=== PATIENT | female | born 1950 | race Caucasian/White ===

== ENCOUNTER 2020-10-25 13:19 | Emergency (ER) | payer OTHER ==
[~2020-10-25] VITALS: Ht 157.5 cm; Wt 83.0 kg
[2020-10-25 13:27] VITALS: BP 147/88
--- NOTE | 2020-10-25 13:40 | NUR ---
PATIENT AMBULATED TO BED 01 WITH STEADY GAIT
--- NOTE | 2020-10-25 13:55 | NUR ---
Dr. Long is evaluating patient at bedside.
--- NOTE | 2020-10-25 13:58 | NUR ---
69 y/o F brought in from Urgent Care referral to r/o DVT. Patient A&Ox4, ambulatory, reports left leg edema x 3 months that worsen over the past two weeks. Patient presents with edema to left foot; lateral aspect of foot. Patient reports it worsens with walking, 5/10 severity. Patient also reports numbness to anterior left foot. Patient denies any medications prior to arrival. Patient denies any N/V/D, chest pain, SOB, dizziness, HERNANDEZ, back/abdominal pain. Patient reports pain to bilateral fingers, however, states due to arthritis. Pt placed into gown and secured entrance monitor. VSS; lung sounds CTA, respirations even/unlabored. Bed locked in lowest position, side rails x 1, call light in reach. PMH: HTN, thyroid ca, venous insufficiency, varicose veins surgery (15 years ago) Meds: levothyroxine, omeprazole, vit d, colace, vasculera NKA
--- NOTE | 2020-10-25 14:15 | NUR ---
Lab at bedside.
--- NOTE | 2020-10-25 14:20 | NUR ---
US tech at bedside.
--- NOTE | 2020-10-25 14:30 | NUR ---
Lab states unsuccessful attempt for blood draw; will try after US completed.
--- NOTE | 2020-10-25 15:10 | NUR ---
Lab at bedside.
[2020-10-25 15:22] LABS: BASOPHILS # (AUTO) 0.1 K/uL (0.00-0.22); BASOPHILS % (AUTO) 0.9 % (0.0-2.0); EOSINOPHILS # (AUTO) 0.1 K/uL (0-0.4); EOSINOPHILS % (AUTO) 1.3 % (0.0-4.0); HEMATOCRIT 43.8 % (36-48); HEMOGLOBIN 14.6 g/dL (12.0-16.0); LYMPHOCYTES # (AUTO) 1.8 K/uL (2.5-16.5); LYMPHOCYTES % (AUTO) 21.2 % (20.5-51.1); MEAN CORPUSCULAR HEMOGLOBIN 30 pg (27-31); MEAN CORPUSCULAR HGB CONC 33 g/dL (33-37); MEAN CORPUSCULAR VOLUME 88.6 fL (80-94); MONOCYTES # (AUTO) 0.6 K/uL (0.8-1.0); MONOCYTES % (AUTO) 7.4 % (1.7-9.3); NEUTROPHILS % (AUTO) 69.2 % (42.2-75.2); PLATELET COUNT (AUTO) 363 K/uL (140-450); RED BLOOD CELL COUNT(AUTO) 4.95 MIL/uL (4.20-5.40); RED CELL DISTRIBUTION WIDTH 14.5 % (11.6-13.7); WHITE BLOOD COUNT (AUTO) 8.7 K/uL (4.8-10.8)
[2020-10-25 15:35] LABS: PROTHROMBIN TIME 10.7 secs (10.8-13.4)
[2020-10-25 15:51] LABS: ALBUMIN 3.6 g/dL (3.4-5.0); CARBON DIOXIDE 28.9 mmol/L (21-32); CREATININE 0.8 mg/dL (0.6-1.3); POTASSIUM 3.9 mmol/L (3.5-5.1); TOTAL BILIRUBIN 0.5 mg/dL (0.0-1.0)
--- NOTE | 2020-10-25 15:53 | NUR ---
PATIENT AMBULATED TO RESTROOM WITH STEADY GAIT.
[2020-10-25 16:00] VITALS: BP 147/62
--- NOTE | 2020-10-25 16:00 | NUR ---
Patient discharged with v/s stable. Written and verbal after care instructions given and explained. Patient verbalized understanding. Ambulatory with steady gait. All questions addressed prior to discharge. Advised to follow up with PMD. PT WAS GIVEN COPY OF US TO FOLLOW UP WITH PCP.
== END 2020-10-25 15:56 | disposition home or self-care (01) ==
LOC: MED 13:19
DX: M79.89 Other specified soft tissue disorders (principal); I10 Essential (primary) hypertension; Z98.890 Other specified postprocedural states
CPT/HCPCS: 36415; 80053; 85025; 85610; 93971; 99284

== ENCOUNTER 2020-12-31 19:08 | Emergency (ER) | payer OTHER ==
[~2020-12-31] VITALS: Ht 154.9 cm; Wt 82.1 kg
[2020-12-31 19:37] VITALS: BP 147/65
[2020-12-31 20:13] LABS: BASOPHILS # (AUTO) 0.2 K/uL (0.00-0.22); BASOPHILS % (AUTO) 2.3 % (0.0-2.0); EOSINOPHILS # (AUTO) 0.3 K/uL (0-0.4); EOSINOPHILS % (AUTO) 3.8 % (0.0-4.0); HEMATOCRIT 45.1 % (36-48); HEMOGLOBIN 14.6 g/dL (12.0-16.0); LYMPHOCYTES # (AUTO) 1.3 K/uL (2.5-16.5); LYMPHOCYTES % (AUTO) 17.6 % (20.5-51.1); MEAN CORPUSCULAR HEMOGLOBIN 28 pg (27-31); MEAN CORPUSCULAR HGB CONC 33 g/dL (33-37); MEAN CORPUSCULAR VOLUME 85.2 fL (80-94); MONOCYTES # (AUTO) 0.5 K/uL (0.8-1.0); MONOCYTES % (AUTO) 6.1 % (1.7-9.3); NEUTROPHILS # (AUTO) 5.3 K/uL (1.8-7.7); NEUTROPHILS % (AUTO) 70.2 % (42.2-75.2); PLATELET COUNT (AUTO) 356 K/uL (140-450); RED BLOOD CELL COUNT(AUTO) 5.29 MIL/uL (4.20-5.40); RED CELL DISTRIBUTION WIDTH 14.3 % (11.6-13.7); WHITE BLOOD COUNT (AUTO) 7.5 K/uL (4.8-10.8)
[2020-12-31 20:22] LABS: ALBUMIN 3.7 g/dL (3.4-5.0); ASPARTATE AMINOTRANSFERASE 26 U/L (15-37); CARBON DIOXIDE 29.8 mmol/L (21-32); CHLORIDE 105 mmol/L (98-107); CREATININE 0.8 mg/dL (0.6-1.3); GLUCOSE 119 mg/dL (74-106); POTASSIUM 3.8 mmol/L (3.5-5.1); SODIUM SERUM 141 mmol/L (136-145); TOTAL BILIRUBIN 0.4 mg/dL (0.0-1.0); UREA NITROGEN, BLOOD 12 mg/dL (7-18)
[2020-12-31 20:23] LABS: PROTHROMBIN TIME 10.5 secs (10.8-13.4)
--- NOTE | 2020-12-31 21:23 | NUR ---
PT AMBULATED TO BED 09
--- NOTE | 2020-12-31 21:25 | NUR ---
PT 70 Y/O FEMALE BIB SELF FOR C/O DVT IN BILATERAL LE. PER PATIENT HAS HAD CHRONIC BILATERAL LE EXTREMITY PAIN SINCE SEPTEMBER. PATIENT STATES THAT SHE HAD AN ULTRASOUND FOR PAIN BACK IN SEPTEMBER BUT CAME BACK NEGATIVE. PER PATIENT WENT TO FOLLOW UP APPOINTMENT WITH PRIMARY CARE AND ULTRASOUND NOW SHOWED DVT IN BILATER LE. PATIENT CMS INTACT, SKIN WARM AND DRY TO TOUCH. CAP REFILL <3. PEDAL PULSES STRONG AND EQUAL BILAT. PATIENT AMBUALTED WITH STEADY GAIT. MED HX: HTN, HYPOTHYROID ALLERGIES: NKA
--- NOTE | 2020-12-31 21:30 | NUR ---
PA MARK ANTHONY WITH PT
--- NOTE | 2020-12-31 21:53 | NUR ---
ERMD AT BEDSIDE FOR EXPLAINATION OF AT HOME CARE AND IMPORTANCE OF FOLLOWING UP WITH PRIMARY.
[2020-12-31] MEDS ORDERED: RIVA15TA1 PO ×2 (21:56→22:05)
[2020-12-31 22:10] VITALS: BP 142/78
--- NOTE | 2020-12-31 22:10 | NUR ---
Patient discharged with v/s stable. Written and verbal after care instructions given and explained. Patient alert, oriented and verbalized understanding of instructions. Ambulatory with steady gait. All questions addressed prior to discharge. ID band removed. Patient advised to follow up with PMD. Rx of XERALTO given. Patient educated on indication of medication including possible reaction and side effects. Opportunity to ask questions provided and answered.
== END 2020-12-31 22:10 | disposition home or self-care (01) ==
LOC: MED 19:08
DX: M79.89 Other specified soft tissue disorders (principal); I10 Essential (primary) hypertension; Z98.890 Other specified postprocedural states; Z79.899 Other long term (current) drug therapy
CPT/HCPCS: 36415; 80053; 85025; 85610; 85730; 99283